=== PATIENT | male | born 1975 | race Caucasian/White ===

== ENCOUNTER 2023-01-15 17:11 | Inpatient (IN) | payer BC, OTHER ==
[2023-01-15] VITALS (17 sets, daily range): BP systolic 122–164; BP diastolic 76–106; PULSE 68–100; RESP 10–27; TEMP 97.8–98.1
[~2023-01-15] VITALS: Ht 175.3 cm; Wt 99.9 kg
[~2023-01-15 17:11] MED LIST: ALLO100T PO; ASPI-986 PO; ATOR10TA69 PO; FUMARATE; RAMI2.5C54 PO
[2023-01-15] MEDS ORDERED: ONDANSETRON HCL 4MG/2ML INJ IV STA (17:18)
[2023-01-15] MEDS ORDERED: MORPHINE SULFATE 4 MG/ML CPJ (NOT FOR IM USE) IV STA (17:18)
[2023-01-15] MEDS ORDERED: ASPIRIN 81MG TABLET PO ONE (17:30)
[2023-01-15] MEDS: NITROGLYCERIN 0.4MG TABLET SL SL PRN ×3 (17:38→18:06)
[2023-01-15 18:04] LABS: BASOPHILS % 0.3 % (0.0-2.0); EOSINOPHILS % 1.3 % (0.0-5.0); HEMATOCRIT. 49.3 % (42.0-52.0); HEMOGLOBIN. 17.1 g/dL (14.0-18.0); LYMPHOCYTES % 37.8 % (20.0-50.0); MEAN CORPUSCULAR HGB CONC 34.6 g/dL (31.0-37.0); MEAN CORPUSCULAR VOLUME 86.7 fL (80.0-94.0); MEAN PLATELET VOLUME 9.9 fl (7.4-10.4); MONOCYTES % 10.5 % (2.0-8.0); NEUTROPHILS % 50.1 % (40.0-76.0); PLATELET 235 x1000/uL (130-400); RED BLOOD CELL COUNT 5.68 mill/uL (4.7-6.1); RED CELL DISTRIBUTION WIDTH 13.3 % (11.6-14.6)
[2023-01-15 18:14] LABS: CHLORIDE 104 mEq/L (98-107); INDEX HEMOLYSI 2 (1-3); INDEX ICTERIC 1 (1-4); INDEX LIPEMIC 1 (1-3); POTASSIUM 3.6 mEq/L (3.5-5.1); SODIUM 141 mEq/L (136-145)
[2023-01-15] MEDS ORDERED: ATROPINE SULFATE 1MG/10ML SYR IV PRN (18:15)
[2023-01-15] MEDS ORDERED: ONDANSETRON HCL 4MG/2ML INJ IV PRN ×2 (18:15→21:00)
[2023-01-15] MEDS ORDERED: SODIUM CHLORIDE 0.45% 1,000 ML IV ONE (18:15)
[2023-01-15] MEDS ORDERED: CLOPIDOGREL 75MG TABLET PO NR (18:15)
[2023-01-15] MEDS ORDERED: ACETAMINOPHEN 325MG TABLET PO PRN ×3 (18:15→21:00)
[2023-01-15] MEDS ORDERED: MORPHINE SULFATE 2 MG/ML CPJ (NOT FOR IM USE) IV PRN (18:15)
[2023-01-15] MEDS ORDERED: HEPARIN 1000 UNITS/ML 10ML ONE (18:20)
[2023-01-15] MEDS ORDERED: MIDAZOLAM HCL 2 MG/2 ML VIAL ONE (18:20)
[2023-01-15] MEDS ORDERED: FENTANYL CITRATE/PF 50MCG/ML 2ML VIAL ONE (18:20)
[2023-01-15] MEDS ORDERED: IODIXANOL 320MG/ML 100 ML BOTTLE IV ONE (18:20)
[2023-01-15] MEDS ORDERED: LIDOCAINE HCL 1% 10 MG/ML 10ML VIAL ONE (18:20)
[2023-01-15 18:26] LABS: ALANINE AMINOTRANSFERASE 73 IU/L (13-61); ALBUMIN 4.1 g/dL (3.4-5.0); ASPARTATE AMINOTRANSFERASE 29 IU/L (15-37); BILIRUBIN TOTAL 0.4 mg/dL (0.1-1.0); CALCIUM 9.6 mg/dL (8.5-10.1); CARBON DIOXIDE 29 mEq/L (21-32); CREATININE 1.1 mg/dL (0.6-1.3); GLUCOSE 177 mg/dL (70-105); NT PRO B-TYPE NATRIURETIC PEP 150 pg/mL (5-125); PROTEIN TOTAL 7.5 g/dL (6.0-8.3); TROPONIN I HIGH SENSITIVITY 16 ng/L (<78); UREA NITROGEN BLOOD 16 mg/dL (7-21)
[2023-01-15] MEDS ORDERED: NALOXONE HCL 0.4MG/ML VIAL IV PRN (18:30)
[2023-01-15] MEDS ORDERED: EPTIFIBATIDE 2 MG/ML 10ML VIAL IV ONE (18:35)
[2023-01-15] MEDS ORDERED: EPTIFIBATIDE 100 ML IV ONE (18:35)
[2023-01-15] MEDS ORDERED: ATROPINE SULFATE 1MG/10ML SYR ONE (18:41)
[2023-01-15 18:56] LABS: PARTIAL THROMBOPLASTIN TIME 25.2 sec (23.4-31.0); PROTHROMBIN TIME 10.5 sec (9.6-11.0)
[2023-01-15] MEDS ORDERED: ATORVASTATIN CALCIUM 40MG TABLET PO SCH (21:00)
[2023-01-15 21:09] LABS: TROPONIN I HIGH SENSITIVITY 1794 ng/L (<78)
[2023-01-15] MEDS ORDERED: DEXTROSE 50% WATER 50ML SYRINGE IV PRN (21:45)
[2023-01-16] VITALS (47 sets, daily range): BP systolic 117–147; BP diastolic 79–113; PULSE 55–97; RESP 5–32; TEMP 97.8–98.5; O2SAT 96
[2023-01-16 05:30] LABS: EOSINOPHILS % 0.3 % (0.0-5.0); HEMOGLOBIN. 15.3 g/dL (14.0-18.0)
[2023-01-16 05:37] LABS: BASOPHILS % 0.1 % (0.0-2.0); HEMATOCRIT. 45.8 % (42.0-52.0); LYMPHOCYTES % 14.2 % (20.0-50.0); MEAN CORPUSCULAR HEMOGLOBIN 29.7 pg (28.0-32.0); MEAN CORPUSCULAR HGB CONC 33.5 g/dL (31.0-37.0); MEAN CORPUSCULAR VOLUME 88.6 fL (80.0-94.0); MEAN PLATELET VOLUME 10.2 fl (7.4-10.4); MONOCYTES % 8.4 % (2.0-8.0); PLATELET 217 x1000/uL (130-400); RED BLOOD CELL COUNT 5.17 mill/uL (4.7-6.1); RED CELL DISTRIBUTION WIDTH 13.5 % (11.6-14.6); WHITE BLOOD COUNT 17.5 x1000/uL (4.5-11.0)
[2023-01-16 05:54] LABS: CHLORIDE 107 mEq/L (98-107); INDEX HEMOLYSI 2 (1-3); INDEX ICTERIC 1 (1-4); INDEX LIPEMIC 1 (1-3); POTASSIUM 3.6 mEq/L (3.5-5.1); SODIUM 138 mEq/L (136-145)
[2023-01-16 06:00] LABS: CALCIUM 7.7 mg/dL (8.5-10.1); CARBON DIOXIDE 22 mEq/L (21-32); GLUCOSE 151 mg/dL (70-105); UREA NITROGEN BLOOD 18 mg/dL (7-21); URIC ACID 8.8 mg/dL (2.6-7.2)
[2023-01-16] MEDS ORDERED: PANTOPRAZOLE 40MG DR TABLET PO SCH (07:50)
[2023-01-16] MEDS: BLOOD SUGAR DIAGNOSTIC STRIP TEST SCH ×3 (07:50→17:50)
[2023-01-16] MEDS ORDERED: METOPROLOL TARTRATE 25MG TABLET PO SCH (09:00)
[2023-01-16] MEDS ORDERED: ASPIRIN 325MG TABLET PO SCH (09:00)
[2023-01-16] MEDS ORDERED: CLOPIDOGREL 75MG TABLET PO SCH (09:00)
[2023-01-16] MEDS ORDERED: ENOXAPARIN 100MG/ML SYR SUBCUT SCH (12:00)
[2023-01-16] MEDS ORDERED: ALLO100T PO (14:36)
[2023-01-16] MEDS ORDERED: RAMI2.5C54 PO (14:37)
[2023-01-16] MEDS ORDERED: ASPI-1406 PO (14:38)
[2023-01-16] MEDS ORDERED: ATOR40TA70 PO (14:38)
[2023-01-17] MEDS ORDERED: ASPIRIN 81MG EC TABLET PO SCH (09:00)
== END 2023-01-16 19:45 | disposition short-term general hospital (02) | DRG 250 ==
LOC: ER 17:11 → CVICU 18:30 → EDBEDREQ 18:32 → EDBEDREQTM 18:32
PROVIDERS: ADMIT Hospitalist; ATTEND Hospitalist
PROC: 02703ZZ Dilation of Coronary Artery, One Artery, Percutaneous Approach (ICD-10-PCS; principal; 2023-01-15)
PROC: 4A023N7 Measurement of Cardiac Sampling and Pressure, Left Heart, Percutaneous Approach (ICD-10-PCS; 2023-01-15)
PROC: B2111ZZ Fluoroscopy of Multiple Coronary Arteries using Low Osmolar Contrast (ICD-10-PCS; 2023-01-15)
PROC: B2151ZZ Fluoroscopy of Left Heart using Low Osmolar Contrast (ICD-10-PCS; 2023-01-15)
PROC: 02C03ZZ Extirpation of Matter from Coronary Artery, One Artery, Percutaneous Approach (ICD-10-PCS; 2023-01-15)
PROC: 4A033BC Measurement of Arterial Pressure, Coronary, Percutaneous Approach (ICD-10-PCS; 2023-01-15)
DX: T82.855A Stenosis of coronary artery stent, initial encounter (principal); I21.09 ST elevation (STEMI) myocardial infarction involving other coronary artery of anterior wall; I21.19 ST elevation (STEMI) myocardial infarction involving other coronary artery of inferior wall; I10 Essential (primary) hypertension; F17.210 Nicotine dependence, cigarettes, uncomplicated; I25.10 Atherosclerotic heart disease of native coronary artery without angina pectoris; M10.9 Gout, unspecified; R73.9 Hyperglycemia, unspecified; E78.5 Hyperlipidemia, unspecified; I25.2 Old myocardial infarction; Z91.199 Patient's noncompliance with other medical treatment and regimen due to unspecified reason; Z95.1 Presence of aortocoronary bypass graft; Y84.8 Other medical procedures as the cause of abnormal reaction of the patient, or of later complication, without mention of misadventure at the time of the procedure; Y92.89 Other specified places as the place of occurrence of the external cause
CPT/HCPCS: 36415; 71045; 80048; 80053; 82962; 83036; 83880; 84484; 84550; 85025; 85347; 86850; 86900; 92920; 92941; 93005; 93306; 93458; 99291; C1725; C1769; C1887; J0461; J1327; J1644; J1650; J2250; J2270; J2405; J3010; J3490; Q9967